=== PATIENT | male | born 1955 | race Caucasian/White ===

== ENCOUNTER 2024-11-11 07:38 | Day surgery (SDC) | payer MEDICARE ==
[2024-10-30 15:28] LABS: BASOPHILS % (AUTO) 0.5 % (0-1); EOSINOPHILS # (AUTO) 0.3 X10'3 (0-0.9); LYMPHOCYTES # (AUTO) 2.2 X10'3 (1.1-4.8); MONOCYTES # (AUTO) 0.9 X10'3 (0-0.9); NEUTROPHILS % (AUTO) 63.8 % (42-75)
[2024-10-30 15:30] LABS: EOSINOPHILS % (AUTO) 2.9 % (0-6); LYMPHOCYTES % (AUTO) 23.4 % (21-51); MEAN CORPUSCULAR HEMOGLOBIN 33.9 PG (27.0-31.0); MEAN CORPUSCULAR HGB CONC 34.2 g/dL (33.0-36.5); MEAN CORPUSCULAR VOLUME 99.2 FL (78-98); MEAN PLATELET VOLUME 8.2 FL (7.4-10.4); MONOCYTES % (AUTO) 9.4 % (2-12); PRE OP HEMATOCRIT 47.2 % (42.0-52.0); PRE OP HEMOGLOBIN 16.1 g/dL (14.0-17.9); PRE OP PLATELET COUNT 410 X10'3 (140-440); PRE OP WHITE BLOOD COUNT 9.4 10'3 (4.8-10.8); RED BLOOD COUNT 4.76 X10'6 (4.70-6.10); RED CELL DISTRIBUTION WIDTH 14.6 % (11.5-14.5)
[2024-10-30 15:49] LABS: ALBUMIN 3.2 G/DL (3.4-5.0); ALBUMIN/GLOBULIN RATIO 0.7 (1.1-1.5); ALKALINE PHOSPHATASE 100 IU/L (46-116); BLOOD UREA NITROGEN 4 MG/DL (7-18); BUN/CREATININE RATIO 5.9 (10.0-20.0); CALCIUM 8.7 MG/DL (8.5-10.1); CHLORIDE 103 MMOL/L (99-107); CREATININE 0.68 MG/DL (0.60-1.10); PRE OP ALT 17 U/L (30-65); PRE OP ANION GAP 10 (8-16); PRE OP AST 17 U/L (10-37); PRE OP BILIRUB, TOTAL 0.4 MG/DL (0.0-1.0); PRE OP GLUCOSE 142 MG/DL (70-104); PRE OP POTASSIUM 3.9 MMOL/L (3.4-5.1); PRE OP SODIUM 138 MMOL/L (135-145); TOTAL CARBON DIOXIDE 25.5 MMOL/L (24-32); TOTAL PROTEIN 7.5 G/DL (6.4-8.2); eGFR > 90 ML/MIN
[~2024-11-11] VITALS: Ht 172.7 cm; Wt 78.3 kg
[2024-11-11] VITALS (9 sets, daily range): BP systolic 141–178; BP diastolic 72–113; PULSE 80–104; RESP 12–24; TEMP 98.4; O2SAT 94–98
[2024-11-11] MEDS: ceFAZolin 2gm in dextrose, iso 50 ML IV ONE (05:30)
[~2024-11-11 07:38] MED LIST: ASCO500C12 PO; ASPI-612 PO; BUPIVAcaine 2.5mg/ml inj 50ml vial (contains preservative) ONE; FLO0.4C PO; INSU100I50 IJ; INSU100I50 INJ; INSU100V5 IJ; LIDOcaine 2% (20mg/ml) 5ml vial ONE; LISI10TA27 PO; MULT-1085 PO; OXYB15TA19 PO; SIMV-42 PO
[2024-11-11] MEDS ORDERED: morphine 2 MG/ML inj. syringe IV PRN (08:05)
[2024-11-11] MEDS ORDERED: enalaprilat dihydrate 2.5mg/2ml vial IV PRN (08:05)
[2024-11-11] MEDS ORDERED: fentaNYL/PF 50MCG/1 ML 2ML syringe IV PRN ×2 (08:05)
[2024-11-11] MEDS ORDERED: morphine 4 MG/ML inj SYRINge IV PRN (08:05)
[2024-11-11] MEDS ORDERED: labetalol 20mg/4ml (5mg/ml) syringe IV PRN (08:05)
[2024-11-11] MEDS ORDERED: ringers solution, lacted 1,000 ML IV SCH (08:05)
[2024-11-11] MEDS: albuterol 2.5 MG/3 ML nebule NEB ONE (08:53)
[2024-11-11] MEDS: famotidine 20mg tablet PO ONE (09:24)
[2024-11-11] MEDS: ringers solution, lacted 1,000 ML IV SCH (09:25)
[2024-11-11] MEDS ORDERED: fentaNYL/PF 50MCG/1 ML 2ML syringe ONE (11:10)
[2024-11-11] MEDS: ondansetron/PF 4mg/2ml inj IV PRN (12:00)
[2024-11-11] MEDS: insulin regular, human U-100 10ml vial - multi-dose IV ONE (12:20)
== END 2024-11-11 10:12 | disposition home or self-care (01) ==
LOC: PRE-OP 07:38
PROVIDERS: ATTEND Orthopaedic Surgery Hand Surgery
DX: M72.0 Palmar fascial fibromatosis [Dupuytren] (principal); I49.1 Atrial premature depolarization; I44.4 Left anterior fascicular block; I10 Essential (primary) hypertension; E11.9 Type 2 diabetes mellitus without complications; E78.00 Pure hypercholesterolemia, unspecified; J44.9 Chronic obstructive pulmonary disease, unspecified; Z79.4 Long term (current) use of insulin; Z79.82 Long term (current) use of aspirin; Z79.891 Long term (current) use of opiate analgesic; Z79.899 Other long term (current) drug therapy; Z98.890 Other specified postprocedural states
CPT/HCPCS: 26123; 36415; 80053; 82948; 85025; 93005; 94640; 94760; A4215; A4618; A6222; A6402; A6446; A6449; A7000; J0690; J1815; J2250; J2405; J3010; J3490; J7030; J7120; Z7506; Z7512; Z7610; J2003